=== PATIENT | female | born 1995 | race Caucasian/White ===

== ENCOUNTER 2017-06-05 22:23 | Emergency (ER) | payer BC, OTHER ==
[~2017-06-05] VITALS: Ht 162.6 cm; Wt 54.4 kg
[2017-06-05] MEDS ORDERED: NS IV 1000 ML 1,000 ML IV ONE (22:48)
--- NOTE | 2017-06-05 22:57 | ED Upper Extremity ---
General Chief Complaint: Upper Extremity Stated Complaint: BILAT SWOLLEN/STIFF ARMS Nursing Triage Note: pt reports she started having bilateral arm swelling/numbness/tightness today. pt states that she does cross fit and exercised hard last week. pt reports after she had trouble moving her arms for two days. Nursing Sepsis Screen: No Definite Risk Source: patient, other Exam Limitations: no limitations History of Present Illness Time seen by provider: 22:49 Initial Comments Patient presents to ER by private conveyance with a chief complaint of bilateral forearm swelling tenderness numbness and pins and needle sensation in her hands and biceps. This started after a particularly aggressive cross fit workout of the upper body 7 days ago. She has not exercised since then. She denies brown colored or tea colored urine. She says the numbness and tingling in her hands will go away. She currently is having a little pins and needles in her bilateral biceps. She says she has full range of motion of her fingers in wrist. It is progressively gotten worse over the past 7 days. She's had no crush injury or other trauma to the forearms. There is no rash, redness, fevers or swelling anywhere else. She does not run extreme distances. Allergies and Home Medications Allergies Coded Allergies: No Known Drug Allergies (Unverified , 06/05/17) Home Medications No Active Prescriptions or Reported Meds Constitutional: No chills, No fever EENTM: No eye pain, No vision loss Respiratory: No cough, No short of breath Cardiovascular: see HPI, No chest pain, edema Gastrointestinal: No abdominal pain, No constipation, No diarrhea, No nausea Genitourinary: No discharge, No dysuria Musculoskeletal: see HPI, No back pain, No joint pain Skin: No pruritus, No rash Psychiatric/Neurological: See HPI, Denies Headache, Numbness, Paresthesia Past Sjmyrci-Rvwezh-Hmmkgt Hx Patient Social History Alcohol Use: Occasionally Uses Recreational Drug Use: No Smoking Status: Never a Smoker Recent Foreign Travel: No Contact w/Someone Who Travel: No Recent Infectious Disease Expo: No Physical Abuse: No Sexual Abuse: No Mistreated: No Fear: No Surgeries History of Surgeries: No Respiratory History of Respiratory Disorde: No Cardiovascular History of Cardiac Disorders: No Neurological History of Neurological Disord: No Genitourinary History of Genitourinary Disor: No Gastrointestinal History of Gastrointestinal Di: No Musculoskeletal History of Musculoskeletal Dis: No Endocrine History of Endocrine Disorders: No HEENT History of HEENT Disorders: No Cancer History of Cancer: No Psychosocial History of Psychiatric Problem: No Suicide Risk Score: 0 Integumentary History of Skin or Integumenta: No Blood Transfusions History of Blood Disorders: No Physical Exam Vital Signs Vital Sign - Last 12Hours 06/05/17 22:39 Temp 98.0 Pulse 91 Resp 20 B/P (MAP) 111/72 Pulse Ox 97 Capillary Refill : Less Than 3 Seconds General Appearance: WD/WN, no apparent distress HEENT: PERRL/EOMI, pharynx normal Neck: non-tender, normal inspection Cardiovascular: normal peripheral pulses, regular rate, rhythm, no edema Respiratory: no respiratory distress, no accessory muscle use Shoulder: normal inspection, non-tender, no evidence of injury, normal ROM, swelling (of the biceps and limited flexion to about 70) Elbow/Forearm: soft tissue tenderness, swelling (of the flexor and extensor muscles of the forearm and wrist bilaterally.) Wrist: Yes non-tender, Yes no evidence of injury, Yes normal ROM Hand: normal inspection, non-tender, no evidence of injury, normal ROM Neurologic/Tendon: normal sensation, normal motor functions, normal tendon functions, responds to pain Neurologic/Psychiatric: no motor/sensory deficits, alert, normal mood/affect, oriented x 3 Skin: normal color, warm/dry Progress/Results/Core Measures Results/Orders Lab Results Laboratory Tests Test 06/05/17 22:36 06/05/17 23:05 Range/Units Urine Color YELLOW Urine Clarity CLEAR Urine pH 7 5-9 Urine Specific [place] 1.010 L 1.016-1.022 Urine Protein NEGATIVE NEGATIVE Urine Glucose (UA) NEGATIVE NEGATIVE Urine Ketones NEGATIVE NEGATIVE Urine Nitrite NEGATIVE NEGATIVE Urine Bilirubin NEGATIVE NEGATIVE Urine Urobilinogen NORMAL NORMAL MG/DL Urine Leukocyte Esterase NEGATIVE NEGATIVE Urine RBC (Auto) 5+ H NEGATIVE Urine RBC 0-2 /HPF Urine WBC RARE /HPF Urine Squamous Epithelial Cells 10-25 H /HPF Urine Crystals NONE /LPF Urine Bacteria TRACE /HPF Urine Casts NONE /LPF Urine Mucus NEGATIVE /LPF Urine Culture Indicated NO Urine Opiates Screen NEGATIVE NEGATIVE Urine Oxycodone Screen NEGATIVE NEGATIVE Urine Methadone Screen NEGATIVE NEGATIVE Urine Propoxyphene Screen NEGATIVE NEGATIVE Urine Barbiturates Screen NEGATIVE NEGATIVE Ur Tricyclic Antidepressants Screen NEGATIVE NEGATIVE Urine Phencyclidine Screen NEGATIVE NEGATIVE Urine Amphetamines Screen NEGATIVE NEGATIVE Urine Methamphetamines Screen NEGATIVE NEGATIVE Urine Benzodiazepines Screen NEGATIVE NEGATIVE Urine Cocaine Screen NEGATIVE NEGATIVE Urine Cannabinoids Screen NEGATIVE NEGATIVE White Blood Count 13.1 H 4.3-11.0 10^3/uL Red Blood Count 4.78 4.35-5.85 10^6/uL Hemoglobin 14.3 11.5-16.0 G/DL Hematocrit 43 35-52 % Mean Corpuscular Volume 91 80-99 FL Mean Corpuscular Hemoglobin 30 25-34 PG Mean Corpuscular Hemoglobin Concent 33 32-36 G/DL Red Cell Distribution Width 12.1 10.0-14.5 % Platelet Count 368 130-400 10^3/uL Mean Platelet Volume 9.2 7.4-10.4 FL Neutrophils (%) (Auto) 65 42-75 % Lymphocytes (%) (Auto) 28 12-44 % Monocytes (%) (Auto) 5 0-12 % Eosinophils (%) (Auto) 1 0-10 % Basophils (%) (Auto) 1 0-10 % Neutrophils # (Auto) 8.6 H 1.8-7.8 X 10^3 Lymphocytes # (Auto) 3.7 1.0-4.0 X 10^3 Monocytes # (Auto) 0.7 0.0-1.0 X 10^3 Eosinophils # (Auto) 0.1 0.0-0.3 10^3/uL Basophils # (Auto) 0.1 0.0-0.1 10^3/uL Erythrocyte Sedimentation Rate 1 0-20 MM/HR Sodium Level 139 135-145 MMOL/L Potassium Level 4.0 3.6-5.0 MMOL/L Chloride Level 106 98-107 MMOL/L Carbon Dioxide Level 23 21-32 MMOL/L Anion Gap 10 5-14 MMOL/L Blood Urea Nitrogen 11 7-18 MG/DL Creatinine 0.73 0.60-1.30 MG/DL Estimat Glomerular Filtration Rate > 60 BUN/Creatinine Ratio 15 Glucose Level 91 70-105 MG/DL Calcium Level 9.5 8.5-10.1 MG/DL Magnesium Level 2.0 1.8-2.4 MG/DL Total Bilirubin 0.2 0.1-1.0 MG/DL Aspartate Amino Transf (AST/SGOT) 340 H 5-34 U/L Alanine Aminotransferase (ALT/SGPT) 254 H 0-55 U/L Alkaline Phosphatase 56 40-136 U/L Total Creatine Kinase 93610 H 29-168 U/L C-Reactive Protein High Sensitivity 0.54 H 0.00-0.50 MG/DL Total Protein 7.0 6.4-8.2 GM/DL Albumin 3.9 3.2-4.5 GM/DL My Orders Orders - JERAMIE DUKEUS Gil Cbc With Automated Diff (06/05/17 22:48) Comprehensive Metabolic Panel (06/05/17 22:48) Creatine Kinase (06/05/17 22:48) Hs C Reactive Protein (06/05/17 22:48) Drug Screen Stat (Urine) (06/05/17:48) Magnesium (06/05/17 22:48) Ua Culture If Indicated (06/05/17:48) Erythrocyte Sedimentation Rate (06/05/17:48) Saline Lock/Iv-Start (06/05/17 22:48) Ns Iv 1000 Ml (Sodium Chloride 0.9%) (06/05/17 22:48) Urine Bedside (06/05/17 22:48) Medications Given in ED Current Medications Medications Dose Ordered Sig/Kae Route Start Time Stop Time Status Last Admin Dose Admin Sodium Chloride 1,000 ml @ 0 mls/hr Q0M ONCE IV 06/05/17 22:48 06/05/17 22:52 DC 06/05/17 23:11 0 MLS/HR Vital Signs/I&O Vital Sign - Last 12Hours 06/05/17 22:39 Temp 98.0 Pulse 91 Resp 20 B/P (MAP) 111/72 Pulse Ox 97 Blood Pressure Mean: 85 Progress Note : Time: 22:56 Progress Note Concern for exercise-induced rhabdomyolysis. 7 days after the presumed injury it is unlikely she is going to progress to compartment syndrome however have warned her against any numbness tingling or discoloration she should return to the ER. At this time her capillary refill is brisk in all 10 digits. We'll check a white blood cell count, CRP, CK, creatinine looking for evidence of rhabdomyolysis or kidney damage. Consults Consults : Consulting Physician: CHANCE BENJAMIN DO Consults Notes Discussed clinical findings and he states it is highly unlikely to be a compartment syndrome given her one week later presentation. If it was a true compartment syndrome there would be tissue at this point. He does agree with working up for rhabdomyolysis and recommends that she not do any exercise until her symptoms completely resolved. Departure Impression Impression: Primary Impression: Rhabdomyolysis Qualified Codes: M62.82 - Rhabdomyolysis Disposition: HOME, SELF-CARE Condition: Stable Departure-Patient Inst. Decision time for Depature: 00:10 Referrals: NO,LOCAL PHYSICIAN (PCP/Family) Primary Care Physician Add. Discharge Instructions: Drink plenty of fluid. Plan to follow up with [facility] in 1-2 weeks for your elevated liver enzymes and rhabdomyolysis. If you have any new or worsening symptoms you can return either to [facility], urgent care or the ER. Do not do any exercise at all until all of your symptoms and soreness completely are gone. All discharge instructions reviewed with patient and/or family. Voiced understanding. Scripts No Active Prescriptions or Reported Meds Work/School Note: School/Childcare Release Date Seen in the Emergency Department: Jun 06, 2017 Time Dismissed from Emergency Department: 00:11 Return to School: Jun 06, 2017 Restrictions: No PE-Until Released, No Sports-Until Released Other Restrictions Listed Below: No physical exercise beyond walking until all of her symptoms are resolved. JINNY DUKE Jun 05, 2017 22:57
[2017-06-05 22:58] LABS: BILIRUBIN,URINE NEGATIVE (NEGATIVE); KETONES,URINE NEGATIVE (NEGATIVE); LEUKOCYTE ESTERASE ,URINE NEGATIVE (NEGATIVE); NITRITE,URINE NEGATIVE (NEGATIVE); PH,URINE 7 (5-9); PROTEIN,URINE NEGATIVE (NEGATIVE); UROBILINOGEN,URINE NORMAL (NORMAL)
[2017-06-05 23:09] LABS: WBC,URINE RARE /HPF
[2017-06-05 23:14] LABS: BASOPHILS # (AUTO) 0.1 10^3/uL (0.0-0.1); BASOPHILS % (AUTO) 1 % (0-10); EOSINOPHILS # (AUTO) 0.1 10^3/uL (0.0-0.3); EOSINOPHILS % (AUTO) 1 % (0-10); LYMPHOCYTES # (AUTO) 3.7 X 10^3 (1.0-4.0); LYMPHOCYTES % (AUTO) 28 % (12-44); MEAN CORPUSCULAR HEMOGLOBIN 30 PG (25-34); MEAN CORPUSCULAR HGB CONC 33 G/DL (32-36); MEAN CORPUSCULAR VOLUME 91 FL (80-99); MEAN PLATELET VOLUME 9.2 FL (7.4-10.4); MONOCYTES # (AUTO) 0.7 X 10^3 (0.0-1.0); MONOCYTES % (AUTO) 5 % (0-12); NEUTROPHILS # (AUTO) 8.6 X 10^3 (1.8-7.8); NEUTROPHILS % (AUTO) 65 % (42-75); PLATELET COUNT 368 10^3/uL (130-400); RED BLOOD COUNT 4.78 10^6/uL (4.35-5.85); RED CELL DISTRIBUTION WIDTH 12.1 % (10.0-14.5); WHITE BLOOD COUNT 13.1 10^3/uL (4.3-11.0)
[2017-06-05 23:37] LABS: ALANINE AMINOTRANSFERASE 254 U/L (0-55); ALBUMIN 3.9 GM/DL (3.2-4.5); ANION GAP 10 MMOL/L (5-14); ASPARTATE AMINO TRANSFERASE 340 U/L (5-34); BILIRUBIN,TOTAL 0.2 MG/DL (0.1-1.0); BLOOD UREA NITROGEN 11 MG/DL (7-18); BUN/CREATININE RATIO 15; CALCIUM 9.5 MG/DL (8.5-10.1); CARBON DIOXIDE 23 MMOL/L (21-32); CHLORIDE 106 MMOL/L (98-107); CREATININE SERUM 0.73 MG/DL (0.60-1.30); ERYTHROCYTE SEDIMENTATION RATE 1 MM/HR (0-20); GFR ESTIMATED > 60; GLUCOSE 91 MG/DL (70-105); SODIUM 139 MMOL/L (135-145); hs C REACTIVE PROTEIN 0.54 MG/DL (0.00-0.50)
[2017-06-05 23:58] LABS: CREATINE KINASE 13442 U/L (29-168)
[2017-06-06 00:19] VITALS: BP 110/67
[2017-06-07] MEDS ORDERED: NORE1TAB26 PO (10:43)
[2017-06-07] MEDS ORDERED: CETI10TA20 PO (10:43)
== END 2017-06-06 00:16 | disposition home or self-care (01) ==
LOC: ER 22:27
DX: M62.82 Rhabdomyolysis (principal)
CPT/HCPCS: 36415; 80053; 80306; 81000; 82550; 83735; 84703; 85025; 85652; 86141

== ENCOUNTER 2017-06-06 16:54 | Observation (INO) | payer BC ==
[~2017-06-06] VITALS: Ht 162.6 cm; Wt 51.3 kg
[2017-06-06 17:20] VITALS: BP 109/76
[2017-06-06] MEDS ORDERED: HYDROcodone/APAP 5 MG/325 MG (LORTAB) TAB PO PRN (17:30)
[2017-06-06] MEDS ORDERED: fentaNYL INJECTION 100 MCG/2 ML AMP IVP PRN (17:30)
[2017-06-06] MEDS ORDERED: CATHETER FLUSH 10 ML SYR IV PRN (17:45)
[2017-06-06] MEDS: ENOXAPARIN 40 MG/0.4 ML (LOVENOX) SYR SC SCH (17:56)
[2017-06-06] MEDS: NS IV 1000 ML 1,000 ML IV SCH ×3 (17:56→22:21)
--- NOTE | 2017-06-06 18:11 | History & Physical-Hospitalist ---
HPI History of Present Illness: HPI/Chief Complaint Pt is a 21yoCF who was direct admitted from [facility] due to rhabdomyolysis and an elevated d dimer. She reports that she did a crossfit workout a few days ago and then yesterday morning developed signifcant swelling and pain in her upper arms. She called her mom who is an [employer] and her mom recommended going to the ER for evaluation. She was seen in the ER last night and found to have a CK of 13k. Per those records she was given 1L of IVF and the case was discussed with ortho and she was discharged home. She continue to worse today and went to [facility] on campus for evaluation. She had labs and usg done as an outpatient to elevated for a DVT. The usg was negative but she was found have an elevated d-dimer. Given worsening symptoms of rhabdomyolysis and the elevated d-dimer she was admitted for further management. She reports persistent pain and swelling. She can move and feel her fingers but has started to develop some numbness around her elbow where the swelling is the worst. She denies any history of blood clots personally or in her family. She denies any drug use or injury to her arms. Source: patient, old records Exam Limitations: no limitations Date Seen 06/06/17 Time Seen by Provider: 17:30 Attending Physician Wong Torres MD PCP Center[facility] Referring Physician Date of Admission Jun 06, 2017 at 17:05 Home Medications & Allergies Home Medications Reviewed patient Home Medication Reconciliation Form Allergies Allergies Coded Allergies No Known Drug Allergies ([id number]/10/17) Past Vdqkhuj-Vowaur-Aglnrl Hx Patient Social History Marrital Status: single Employed/Student: student, full-time Alcohol Use: Denies Use Recreational Drug Use: No Smoking Status: Never a Smoker Physical Abuse Screen: No Sexual Abuse: No Recent Foreign Travel: No Contact w/other who traveled: No Recent Hopitalizations: No Recent Infectious Disease Expo: No Immunizations Up To Date Date of Influenza Vaccine: May 07, 2017 Seasonal Allergies Seasonal Allergies: No Surgeries No Respiratory No Cardiovascular No Neurological No Genitourinary No Gastrointestinal No Musculoskeletal No Endocrine History of Endocrine Disorders: No HEENT History of HEENT Disorders: No Cancer No Psychosocial History of Psychiatric Problem: No Integumentary History of Skin or Integumenta: No Blood Transfusions History of Blood Disorders: No Adverse Reaction to a Blood Tr: No Family Medical History Significant Family History: No Pertinent Family Hx Family Hx: Patient reports no known family medical history. Review of Systems Constitutional: No chills, No fever EENTM: No blurred vision, No double vision, No nose congestion, No throat pain Respiratory: No cough, No dyspnea on exertion, No short of breath Cardiovascular: No chest pain, No edema, No palpitations Gastrointestinal: No abdominal pain, No constipation, No diarrhea, No nausea, No vomiting Genitourinary: No dysuria, No frequency Musculoskeletal: see HPI, muscle pain, muscle cramps Skin: No lesions, No rash Psychiatric/Neurological: Paresthesia, Tingling Physical Exam Physical Exam Vital Signs Vital Sign - Last 12Hours 06/06/17 17:20 Temp 98.9 Pulse 79 Resp 20 B/P (MAP) 109/76 Pulse Ox 98 O2 Delivery Room Air Capillary Refill : General Appearance: No Apparent Distress, WD/WN HEENT: PERRL/EOMI, Moist Mucous Membranes Neck: Non Tender, Supple Respiratory: Lungs Clear, No Respiratory Distress Cardiovascular: Regular Rate, Rhythm, No Murmur, Normal Peripheral Pulses ( radial pulses intact bilaterally) Gastrointestinal: Normal Bowel Sounds, Non Tender, Soft Extremity: Normal Capillary Refill, No Calf Tenderness, Inflammation ( bilateral upper arms L>R ) Neurologic/Psychiatric: Alert, Oriented x3, No Motor/Sensory Deficits, Normal Mood/Affect Skin: Normal Color, Warm/Dry Assessment/Plan Admission Diagnosis Rhabdomyolysis Diagnosis/Problems Diagnosis/Problems (1) Rhabdomyolysis Status: Acute Assessment & Plan: 2L bolus now followed by 200cc/hr afterwards check CK now Check UA and UDS Given new onset paresthesias I called and discussed case with Dr. Sinclair (gen surg ) who will see her and recommended wrapping arms in NAVNEET bandage and elevating Radial pulse intact along with sensation, discussed with nurse to check radial pulse with every vital check Qualifiers: Qualified Codes: M62.82 - Rhabdomyolysis (2) Elevated d-dimer Status: Acute Assessment & Plan: Wells of 0 Usg done earlier today negative for DVT Unlikely to be PE likely related to rhabdo Will give 1x dose of Lovenox therapeutic dosing for now, await creatinine in AM (3) Transaminitis Status: Acute Assessment & Plan: per report from [employer] labs done at clinic are improving To be faxed to us (4) Leukocytosis Status: Acute Assessment & Plan: likely reactive. Will trend. (5) Prophylactic measure Assessment & Plan: Lovenox NS at 200cc/hr Regular diet Clinical Quality Measures DVT/VTE Risk/Contraindication: RFS Level Per Nursing on Admit: 1=Low/No VTE PPX WONG TORRES MD Jun 06, 2017 18:11
[2017-06-06] MEDS ORDERED: NS IV 1000 ML 1,000 ML IV SCH ×2 (18:15→20:15)
[2017-06-06] MEDS ORDERED: ENOXAPARIN 60 MG/0.6 ML (LOVENOX) SYR SC ONE (18:15)
[2017-06-06] MEDS ORDERED: NS IV 1000 ML 2,000 ML IV ONE (18:45)
[2017-06-06 20:03] VITALS: BP 122/73
[2017-06-07] VITALS: BP 111/62
[2017-06-07] MEDS: NS IV 1000 ML 1,000 ML IV SCH ×4 (01:33→22:04)
[2017-06-07 01:42] LABS: BILIRUBIN,URINE NEGATIVE (NEGATIVE); KETONES,URINE NEGATIVE (NEGATIVE); LEUKOCYTE ESTERASE ,URINE NEGATIVE (NEGATIVE); NITRITE,URINE NEGATIVE (NEGATIVE); PH,URINE 7 (5-9); PROTEIN,URINE NEGATIVE (NEGATIVE); UROBILINOGEN,URINE NORMAL (NORMAL)
[2017-06-07 04:00] VITALS: BP 125/62
[2017-06-07 05:57] LABS: PROTHROMBIN TIME PATIENT 13.6 SEC (12.2-14.7)
[2017-06-07 05:59] LABS: BASOPHILS # (AUTO) 0.1 10^3/uL (0.0-0.1); BASOPHILS % (AUTO) 1 % (0-10); EOSINOPHILS # (AUTO) 0.3 10^3/uL (0.0-0.3); EOSINOPHILS % (AUTO) 3 % (0-10); LYMPHOCYTES # (AUTO) 3.9 X 10^3 (1.0-4.0); LYMPHOCYTES % (AUTO) 39 % (12-44); MEAN CORPUSCULAR HEMOGLOBIN 30 PG (25-34); MEAN CORPUSCULAR HGB CONC 32 G/DL (32-36); MEAN CORPUSCULAR VOLUME 93 FL (80-99); MEAN PLATELET VOLUME 9.4 FL (7.4-10.4); MONOCYTES # (AUTO) 0.7 X 10^3 (0.0-1.0); MONOCYTES % (AUTO) 7 % (0-12); NEUTROPHILS # (AUTO) 5.2 X 10^3 (1.8-7.8); NEUTROPHILS % (AUTO) 51 % (42-75); PLATELET COUNT 298 10^3/uL (130-400); RED BLOOD COUNT 4.15 10^6/uL (4.35-5.85); RED CELL DISTRIBUTION WIDTH 12.1 % (10.0-14.5); WHITE BLOOD COUNT 10.1 10^3/uL (4.3-11.0)
[2017-06-07 06:16] LABS: ALANINE AMINOTRANSFERASE 152 U/L (0-55); ANION GAP 7 MMOL/L (5-14); ASPARTATE AMINO TRANSFERASE 124 U/L (5-34); BILIRUBIN,TOTAL 0.4 MG/DL (0.1-1.0); BLOOD UREA NITROGEN 8 MG/DL (7-18); BUN/CREATININE RATIO 13; CALCIUM 8.2 MG/DL (8.5-10.1); CARBON DIOXIDE 20 MMOL/L (21-32); CHLORIDE 111 MMOL/L (98-107); CREATINE KINASE 3692 U/L (29-168); CREATININE SERUM 0.63 MG/DL (0.60-1.30); GFR ESTIMATED > 60; GLUCOSE 79 MG/DL (70-105); SODIUM 138 MMOL/L (135-145); TOTAL PROTEIN 5.2 GM/DL (6.4-8.2)
[2017-06-07 07:52] VITALS: BP 149/66
--- NOTE | 2017-06-07 09:25 | Progress Note-Hospitalist ---
Subjective HPI/CC On Admission Date Seen by Provider: Jun 07, 2017 Time Seen by Provider: 08:45 Pt is a 21yoCF who was direct admitted from [facility] due to rhabdomyolysis and an elevated d dimer. She reports that she did a [employer] workout a few days ago and then yesterday morning developed signifcant swelling and pain in her upper arms. She called her mom who is an FI[employer] EX[employer] INSPECTOR and her mom recommended going to the ER for evaluation. She was seen in the ER last night and found to have a CK of 13k. Per those records she was given 1L of IVF and the case was discussed with ortho and she was discharged home. She continue to worse today and went to [facility] on campus for evaluation. She had labs and usg done as an outpatient to elevated for a DVT. The usg was negative but she was found have an elevated d-dimer. Given worsening symptoms of rhabdomyolysis and the elevated d-dimer she was admitted for further management. She reports persistent pain and swelling. She can move and feel her fingers but has started to develop some numbness around her elbow where the swelling is the worst. She denies any history of blood clots personally or in her family. She denies any drug use or injury to her arms. Subjective/Events-last exam Pt reports feeling better today. Arms are still sore but improved from yesterday. Objective Exam Vital Signs Vital Sign - Last 12Hours 06/06/17 17:20 Temp 98.9 Pulse 79 Resp 20 B/P (MAP) 109/76 Pulse Ox 98 O2 Delivery Room Air Capillary Refill : General Appearance: No Apparent Distress, WD/WN Respiratory: Lungs Clear, No Respiratory Distress Cardiovascular: Regular Rate, Rhythm, No Murmur, Normal Peripheral Pulses Gastrointestinal: Normal Bowel Sounds, Non Tender, Soft Extremity: Non Tender, No Calf Tenderness, Other (bilateral upper arm swelling , improved from yesterday) Neurologic/Psychiatric: Alert, Oriented x3, No Motor/Sensory Deficits, Normal Mood/Affect Results/Procedures Lab Laboratory Tests 06/08/17 05:30 Assessment/Plan Assessment and Plan Assess & Plan/Chief Complaint Rhabdomyolysis Diagnosis/Problems Diagnosis/Problems (1) Rhabdomyolysis Status: Acute Assessment & Plan: Ck improving Surgery consulted, appreciate recs Continue IVF but will decrease rate Qualifiers: Qualified Codes: M62.82 - Rhabdomyolysis (2) Elevated d-dimer Status: Acute Assessment & Plan: Field Support Representative WNL On OCP Will get CTA to rule out PE Doppler of LUE negative (3) Transaminitis Status: Acute Assessment & Plan: Improving Likely from rhabdo (4) Leukocytosis Status: Resolved Assessment & Plan: Resolved (5) Prophylactic measure Assessment & Plan: Lovenox NS at 125cc/hr Regular diet WONG TORRES MD Jun 07, 2017 09:25
[2017-06-07] MEDS ORDERED: CETI10TA20 PO (10:43)
[2017-06-07] MEDS ORDERED: NORE1TAB26 PO (10:43)
[2017-06-07] MEDS ORDERED: NS 100 ML (IVPB) BAG IV ONE (11:15)
[2017-06-07] MEDS ORDERED: IOHEXOL 350 MG/ML 100 ML (OMNIPAQUE 350) VIAL IV ONE (11:15)
[2017-06-07] MEDS ORDERED: ACETAMINOPHEN 500 MG TAB (TYLENOL) ONE (11:56)
[2017-06-07] MEDS: ACETAMINOPHEN 500 MG TAB (TYLENOL) PO PRN ×2 (12:05→22:04)
[2017-06-07 12:45] VITALS: BP 158/72
--- NOTE | 2017-06-07 13:52 | Diagnostic Imaging Report ---
PROCEDURE: CT angiography of the chest with contrast. TECHNIQUE: Multiple contiguous axial images were obtained through the chest after uneventful bolus administration of intravenous contrast. Reconstructed CTA MIP acquisitions were also performed. INDICATION: Arm swelling. Elevated d-dimer. 100 mL of Omnipaque 350 is administered intravenously. FINDINGS: The pulmonary arteries are well opacified with no filling defects seen to suggest pulmonary embolism. The thoracic aorta is normal in caliber. There is no dissection. The mediastinum demonstrates anterior mediastinal soft tissue density compatible with the normal thymus commonly seen in the patient's age. There is otherwise no mediastinal mass or lymphadenopathy. No hilar or axillary lymphadenopathy seen. The heart size is normal. There is no pericardial or pleural effusion. The lungs demonstrate no significant consolidation, mass or suspicious nodule. The osseous structures appear grossly unremarkable. Sections of the upper abdomen appear unremarkable. IMPRESSION: No PE or aortic dissection. Unremarkable exam. Dictated by: Dictated on workstation # [id number]
[2017-06-07 16:00] VITALS: BP 133/66
[2017-06-07] MEDS: ENOXAPARIN 40 MG/0.4 ML (LOVENOX) SYR SC SCH (18:19)
[2017-06-07 20:13] VITALS: BP 97/59
[2017-06-08 00:14] VITALS: BP 116/60
[2017-06-08] MEDS: NS IV 1000 ML 1,000 ML IV SCH ×2 (01:28→06:11)
--- NOTE | 2017-06-08 01:42 | CONSULTATION REPORT ---
DATE OF SERVICE: ADMITTING PHYSICIAN: Dr. Eve Kirkpatrick. HISTORY OF PRESENT ILLNESS: The patient is a 21-year-old female, student of [employer]. She was involved in a CrossFit yesterday and was doing arm exercises; this was approximately one week ago. She then reports that she did do a lot of physical activity help moving her brother and also became dehydrated. She then developed swelling and pain in the left arm as well as the left pectoralis region. A mild amount of swelling was identified. This was followed by more pain. She was seen at the [facility] and transferred to the Emergency Department where she was found to have elevated creatinine kinase consistent with a rhabdomyolysis. She had an elevated creatine kinase as well as a D-dimer. There was a good amount of swelling of the left elbow including the distal portion of the humerus as well as a mild amount of swelling of the forearm; however, no compartment syndrome. There was no paresthesia as well as palpable distal pulses. She also had full range of motion. She once being admitted and started on IV fluids, she did have copious amount of urine output. She also has had a significant decline in her creatine kinase. She is also tolerating a regular diet and does not have any other issues at this time. PAST MEDICAL HISTORY: None. PAST SURGICAL HISTORY: None. ALLERGIES: No known drug allergies. MEDICATIONS: None. SOCIAL HISTORY: Negative smoke, social alcohol. FAMILY HISTORY: Noncontributory. VITAL SIGNS: Temperature 98.7, blood pressure 133/66, pulse 80, respirations 18, pulse ox 97% on room air. REVIEW OF SYSTEMS: This is a well-nourished female, currently in no acute distress. She is not experiencing any shortness of breath or difficulty breathing. No chest pain, palpitations, or diaphoresis. No nausea, vomiting, no diarrhea or constipation. No fever, chills. No recent inadvertent weight loss. All other review of systems negative. PHYSICAL EXAMINATION: CHEST: Clear. Good breath sounds bilaterally. HEART: Regular, no murmurs. EXTREMITIES: No lower extremity edema, negative Homans sign. There was a mild amount of swelling around the area of the elbow; however, this has declined since being Jason wrapped as well as elevated. There is no paresthesia with distal pulses palpable. HEENT: No scleral icterus. NECK: No cervical lymphadenopathy. ABDOMEN: Soft, nontender, nondistended. SKIN: Warm and dry. She has received a total of greater than 2000 mL of IV fluids, has greater than 1 liter of oral intake and has had 4 voids with adequate urine output. LABORATORY DATA: WBC 10.1, hemoglobin 12.4, hematocrit 38, platelets 298, BUN 8, creatinine 0.63. Initial creatine kinase 6998, today's was 3692. ASSESSMENT AND PLAN: A 21-year-old female with mild rhabdomyolysis of the left upper extremity. She has responded well with conservative management with IV hydration alone. We will recommend resting her muscles for the next 6 weeks and then to incorporate exercise again; however, the importance of being well hydrated with exercise was explained to the patient as well as the potential risks involved with CrossFit due to the strenuous nature of the exercises. It was recommended that she proceed with more regimented resistance weight training as well as cardiovascular exercises versus combining both in an extreme manner. Job ID: [id number] DocumentID: [id number] Dictated Date: 06/07/2017 17:42:44 Ballistic Expert Date: 06/07/2017 18:22:56 Dictated By: MARISOL STUBBS MD [facility]
[2017-06-08 07:03] LABS: ALANINE AMINOTRANSFERASE 128 U/L (0-55); ALBUMIN 3.2 GM/DL (3.2-4.5); ANION GAP 9 MMOL/L (5-14); ASPARTATE AMINO TRANSFERASE 79 U/L (5-34); BILIRUBIN,TOTAL 0.4 MG/DL (0.1-1.0); BLOOD UREA NITROGEN 8 MG/DL (7-18); BUN/CREATININE RATIO 12; CALCIUM 8.5 MG/DL (8.5-10.1); CARBON DIOXIDE 21 MMOL/L (21-32); CHLORIDE 109 MMOL/L (98-107); CREATINE KINASE 1931 U/L (29-168); CREATININE SERUM 0.68 MG/DL (0.60-1.30); GFR ESTIMATED > 60; GLUCOSE 76 MG/DL (70-105); POTASSIUM 3.7 MMOL/L (3.6-5.0); SODIUM 139 MMOL/L (135-145); TOTAL PROTEIN 5.4 GM/DL (6.4-8.2)
[2017-06-08 08:13] VITALS: BP 146/63
[2017-06-08] MEDS ORDERED: ACET-77 PO (08:36)
--- NOTE | 2017-06-08 08:50 | Discharge Summary-Hospitalist ---
Diagnosis/Chief Complaint Date of Admission Jun 06, 2017 at 17:05 Date of Discharge Discharge Date: Jun 08, 2017 Admission Diagnosis Rhabdomyolysis Discharge Diagnosis Rhabdomyolysis (1) Rhabdomyolysis Status: Acute Assessment & Plan: Ck improved with fluid resuscitation Surgery consulted, appreciate recs DC home, encouraged pushing oral fluids Advised avoid rigorous exercise for the next 6 weeks (2) Elevated d-dimer Status: Acute Assessment & Plan: On OCP CTA ordered and negative likely from rhabdo (3) Transaminitis Status: Acute Assessment & Plan: Nearly resolved Likely from [facility] Will need follow up in 1 week at [facility] (4) Leukocytosis Status: Resolved Assessment & Plan: Resolved (5) Prophylactic measure Assessment & Plan: Lovenox Regular diet Discharge Summary Consultations Surgery- Dr. Sinclair Discharge Physical Examination Allergies: Coded Allergies: No Known Drug Allergies (Unverified , 06/05/17) Vitals & I&Os Vital Signs Date Time Temp Pulse Resp B/P (MAP) Pulse Ox O2 Delivery O2 Flow Rate FiO2 06/08/17 08:13 99.1 69 18 146/63 97 Room Air Hospital Course Pt is a 21yoCF who was direct admitted for rhabdomyolysis. She was seen in the day before admission and given 1L of fluids and found to have a CK >13k. She was discharged home with instructions to push oral fluids. Her symptoms continued to worsen at home and she presented to [facility]. An ultrasound was done and negative for a DVT but a d-dimer was elevated. Given worsening symptoms and elevated d-dimer she was admitted for failed outpatient management. She responded well to IVF and Dr Sinclair evaluated for concerns of compartment syndrome given new paresthesias. A CTA chest was negative for PE. She was discharge home on day 2 of admission in stable condition. Labs (last 24 hrs) Laboratory Tests 06/08/17 05:30: Sodium Level 139, Potassium Level 3.7, Chloride Level 109H, Carbon Dioxide Level 21, Anion Gap 9, Blood Urea Nitrogen 8, Creatinine 0.68, Estimat Glomerular Filtration Rate > 60, BUN/Creatinine Ratio 12, Glucose Level 76, Calcium Level 8.5, Total Bilirubin 0.4, Aspartate Amino Transf (AST/SGOT) 79H, Alanine Aminotransferase (ALT/SGPT) 128H, Alkaline Phosphatase 49, Total Creatine Kinase 1931H, Total Protein 5.4L, Albumin 3.2 Pending Labs Laboratory Tests 06/08/17 05:30: Sodium Level 139, Potassium Level 3.7, Chloride Level 109, Carbon Dioxide Level 21, Anion Gap 9, Blood Urea Nitrogen 8, Creatinine 0.68, Estimat Glomerular Filtration Rate > 60, BUN/Creatinine Ratio 12, Glucose Level 76, Calcium Level 8.5, Total Bilirubin 0.4, Aspartate Amino Transf (AST/SGOT) 79, Alanine Aminotransferase (ALT/SGPT) 128, Alkaline Phosphatase 49, Total Creatine Kinase 1931, Total Protein 5.4, Albumin 3.2 Discharge Home Medications: Active Scripts Active Acetaminophen 500 Mg Tablet 500 Mg PO Q6H PRN Reported Fe 1.5 mg-30 Mcg Tablet (Norethindrone-E.estradiol-Iron) 1 Each Tablet 1 Tab PO DAILY Zyrtec (Cetirizine HCl) 10 Mg Tablet 10 Mg PO DAILY PRN Instructions to patient/family Please see electronic discharge instructions given to patient. Clinical Quality Measures DVT/VTE Risk/Contraindication: RFS Level Per Nursing on Admit: 1=Low/No VTE PPX Copy Copies To 1: NOLA WALTERS MD Problem Qualifiers (1) Rhabdomyolysis: Rhabdomyolysis type: non-traumatic Qualified Codes: M62.82 - Rhabdomyolysis WONG TORRES MD Jun 08, 2017 08:50
[2017-06-08 09:25] VITALS: BP 146/63
== END 2017-06-08 08:36 | disposition home or self-care (01) ==
LOC: UNDOADMOB 17:05 → 4TH 17:05 → UNDODISOB 06-08 09:25
PROVIDERS: ADMIT Family Medicine; ATTEND Family Medicine
DX: M62.82 Rhabdomyolysis (principal); R79.1 Abnormal coagulation profile; R74.0 Nonspecific elevation of levels of transaminase and lactic acid dehydrogenase [LDH]; D72.829 Elevated white blood cell count, unspecified
CPT/HCPCS: 36415; 71275; 80053; 80306; 81000; 82550; 84703; 85025; 85610; 99211; G0378

== ENCOUNTER → 2017-06-06 | Outpatient (CLI) | payer BC ==
[~2017-06-06] MED LIST: ACET-77 PO; CETI10TA20 PO; NORE1TAB26 PO
--- NOTE | 2017-06-06 16:42 | Diagnostic Imaging Report ---
PROCEDURE: US venous upper extremity left. TECHNIQUE: Multiple realtime grayscale images were obtained of left upper extremity in various projections. Duplex Doppler and and color Doppler images were also obtained. INDICATION: Left arm swelling. FINDINGS: The left internal jugular vein is patent. The left subclavian, axillary, brachial, basilic, radial and ulnar veins are all patent. Normal compressibility, color flow and venous waveforms are demonstrated. IMPRESSION: No evidence of venous thrombosis in the left upper extremity. Dictated by: Dictated on workstation # [id number]
== END ==
LOC: RAD 15:25
PROVIDERS: ATTEND Nurse Practitioner Family
DX: R22.32 Localized swelling, mass and lump, left upper limb (principal)